=== PATIENT | female | born 2000 | race Two or more races ===

== ENCOUNTER 2025-02-03 12:08 | Emergency (ER) | payer OTHER ==
[~2025-02-03] VITALS: Ht 157.5 cm; Wt 68.9 kg
[2025-02-03] MEDS ORDERED: AMOX1TAB5 PO (15:49)
[2025-02-03] MEDS ORDERED: PEPCID AC20 MG PO (15:49)
== END 2025-02-03 16:35 | disposition home or self-care (01) ==
LOC: ER 13:37
DX: J32.9 Chronic sinusitis, unspecified (principal); G40.89 Other seizures